=== PATIENT | female | born 1995 | race Native Hawaiian/Other Pacific Islander ===

== ENCOUNTER 2019-09-27 20:38 | Emergency (ER) | payer OTHER ==
[~2019-09-27] VITALS: Ht 162.6 cm; Wt 107.0 kg
[2019-09-27 22:25] VITALS: BP 133/69; TEMP 98.2
== END 2019-09-27 22:25 | disposition home or self-care (01) ==
LOC: ED 20:38
DX: B86 Scabies (principal); L03.818 Cellulitis of other sites; Z16.31 Resistance to antiparasitic drug(s)
CPT/HCPCS: 99282

== ENCOUNTER 2021-11-03 19:34 | Emergency (ER) | payer OTHER ==
[~2021-11-03] VITALS: Ht 162.6 cm; Wt 145.6 kg
[2021-11-03 20:27] LABS: PLATELET COUNT 141 K/uL (152-353)
[2021-11-03 20:37] LABS: POTASSIUM 3.4 mmol/L (3.6-5.2)
[2021-11-03 21:05] VITALS: BP 130/60; TEMP 98.8
== END 2021-11-03 21:05 | disposition home or self-care (01) ==
LOC: ED 19:34
PROVIDERS: Emergency Medicine
DX: Z3A.30 30 weeks gestation of pregnancy (principal); U07.1 COVID-19; E87.6 Hypokalemia
CPT/HCPCS: 36415; 80048; 81000; 85027; 87635; 99284; U0003